=== PATIENT | female | born 2000 | race Caucasian/White ===

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

== ENCOUNTER 2021-01-16 12:46 | Emergency (ER) | payer OTHER ==
[~2021-01-16] VITALS: Ht 152.4 cm; Wt 77.1 kg
== END 2021-01-16 17:21 | disposition home or self-care (01) ==
LOC: ED 12:46
DX: S01.01XA Laceration without foreign body of scalp, initial encounter (principal); Z79.899 Other long term (current) drug therapy; Z98.890 Other specified postprocedural states; V89.2XXA Person injured in unspecified motor-vehicle accident, traffic, initial encounter; Y93.89 Activity, other specified; Y92.89 Other specified places as the place of occurrence of the external cause; Y99.8 Other external cause status